=== PATIENT | male | born 1990 ===

== ENCOUNTER → 2018-11-30 | Outpatient (CLI) | payer OTHER ==
[2018-11-30 14:12] LABS: PLATELET COUNT, AUTOMATED 323 K/uL (150-450)
== END ==
LOC: LAB 13:32
PROVIDERS: ATTEND Internal Medicine
DX: B15.9 Hepatitis A without hepatic coma (principal); R94.5 Abnormal results of liver function studies
CPT/HCPCS: 36415; 81001; 82040; 82247; 82310; 82374; 82435; 82565; 82947; 84075; 84132; 84155; 84295; 84450; 84460; 84520; 85025; 86708; 86709

== ENCOUNTER → 2019-01-13 | Outpatient (CLI) | payer OTHER ==
[2019-01-13 13:46] LABS: PLATELET COUNT, AUTOMATED 249 K/uL (150-450)
== END ==
LOC: LAB 13:28
PROVIDERS: ATTEND Internal Medicine
DX: B15.9 Hepatitis A without hepatic coma (principal); R94.5 Abnormal results of liver function studies; R35.1 Nocturia
CPT/HCPCS: 36415; 81001; 82040; 82247; 82310; 82374; 82435; 82565; 82947; 83036; 84075; 84132; 84155; 84295; 84450; 84460; 84520; 85025